=== PATIENT | female | born 1975 | race Caucasian/White ===

== ENCOUNTER 2016-12-09 13:50 | Emergency (ER) | payer MEDICAID ==
[2016-12-09] MEDS ORDERED: OXYCODONE-ACETAMINOPHEN 5-325 MG TABLET PO ONE (15:01)
--- NOTE | 2016-12-09 15:04 | ER Document Report ---
ED Medical Screen (RME) - General Chief Complaint: Abdominal Pain Stated Complaint: SEVER ABDOMINAL PAIN Time Seen by Provider: 12/09/16 14:58 Notes: 41-year-old female patient complaining of some lower abdominal pain which she thought might be her diverticulitis flaring up. She also has hemorrhoids hanging out this started about 2 weeks ago which she tries to reduce, but cannot due to size and pain associated with them now. She is unable to sit down. She states she has rods in her back and the nerves from that and her diverticular disease and the hemorrhoids all come together and she has difficulty telling what is what. She did look in a mirror and saw a cluster of hemorrhoids similar to a Internet picture she had looked at. I have greeted and performed a rapid initial assessment of this patient. A comprehensive ED assessment and evaluation of the patient, analysis of test results and completion of the medical decision making process will be conducted by additional ED providers. TRAVEL OUTSIDE OF THE [place] IN LAST 30 DAYS: No - Related Data Allergies/Adverse Reactions: No Known Allergies Allergy (Unverified 12/09/16 14:01) Past Medical History Renal/ Medical History: Denies: Hx Peritoneal Dialysis Past Surgical History: Reports: Hx Oral Surgery - left jaw, Hx Orthopedic Surgery - back - Immunizations Hx Diphtheria, Pertussis, Tetanus Vaccination: Yes Physical Exam - Vital signs Vitals: Temp Pulse Resp BP Pulse Ox 98.5 F 140 H 20 122/99 H 98 12/09/16 14:00 12/09/16 14:00 12/09/16 14:00 12/09/16 14:00 12/09/16 14:00 Course - Vital Signs Vital signs: Temp Pulse Resp BP Pulse Ox 98.5 F 140 H 20 122/99 H 98 12/09/16 14:00 12/09/16 14:00 12/09/16 14:00 12/09/16 14:00 12/09/16 14:00
[2016-12-09 15:27] LABS: ABSOLUTE BASOPHILS # (AUTO) 0.1 10^3/uL (0.0-0.2); ABSOLUTE EOSINOPHILS # (AUTO) 0.2 10^3/uL (0.0-0.6); ABSOLUTE LYMPHOCYTES (AUTO) 2.5 10^3/uL (0.5-4.7); ABSOLUTE MONOCYTES (AUTO) 0.8 10^3/uL (0.1-1.4); ABSOLUTE NEUT (AUTO) 6.3 10^3/uL (1.7-8.2); BASOPHILS % (AUTO) 0.9 % (0-2); EOSINOPHILS % (AUTO) 2.2 % (0-6); HEMATOCRIT 41.5 % (36.0-47.0); HEMOGLOBIN 14.3 g/dL (12.0-15.5); HGB HCT DIFFERENCE 1.4; LYMPHOCYTES % (AUTO) 25.3 % (13-45); MEAN CORPUSCULAR HEMOGLOBIN 33.2 pg (27.0-33.4); MEAN CORPUSCULAR HGB CONC 34.6 g/dL (32.0-36.0); MEAN CORPUSCULAR VOLUME 96 fl (80-97); MONOCYTES % (AUTO) 7.9 % (3-13); RED BLOOD COUNT 4.31 10^6/uL (3.72-5.28); RED CELL DISTRIBUTION WIDTH 14.4 % (11.5-14.0); SEGMENTED NEUTROPHILS % (AUTO) 63.7 % (42-78); WHITE BLOOD COUNT 9.9 10^3/uL (4.0-10.5)
[2016-12-09 15:31] LABS: APPEARANCE,URINE CLEAR; BILIRUBIN,URINE NEGATIVE (NEGATIVE); GLUCOSE, URINE NEGATIVE (NEGATIVE); KETONES,URINE NEGATIVE (NEGATIVE); LEUKOCYTE ESTERASE,URINE SMALL (NEGATIVE); NITRITE,URINE NEGATIVE (NEGATIVE); PROTEIN,URINE NEGATIVE (NEGATIVE); URINE SPECIFIC GRAVITY 1.001; UROBILINOGEN,URINE NEGATIVE mg/dL (<2.0)
[2016-12-09 15:45] LABS: ALANINE AMINOTRANSFERASE 22 U/L (9-52); ALBUMIN 4.4 g/dL (3.5-5.0); ALKALINE PHOSPHATASE 103 U/L (38-126); ANION GAP 10 (5-19); ASPARTATE AMINO TRANSFERASE 20 U/L (14-36); BILIRUBIN,DIRECT 0.4 mg/dL (0.0-0.4); BILIRUBIN,TOTAL 0.5 mg/dL (0.2-1.3); BLOOD UREA NITROGEN 4 mg/dL (7-20); CALCIUM 10.7 mg/dL (8.4-10.2); CARBON DIOXIDE 26 mmol/L (22-30); CHLORIDE 102 mmol/L (98-107); CREATININE RESULT 0.68 mg/dL (0.52-1.25); GLUCOSE 91 mg/dL (75-110); POTASSIUM 5.2 mmol/L (3.6-5.0); SODIUM 138.4 mmol/L (137-145); TOTAL PROTEIN 7.5 g/dL (6.3-8.2)
--- NOTE | 2016-12-09 16:02 | ER Document Report ---
ED GI/ - General Chief Complaint: Abdominal Pain Stated Complaint: SEVER ABDOMINAL PAIN Time Seen by Provider: 12/09/16 14:58 Mode of Arrival: Ambulatory Information source: Patient Notes: Patient presents complaining of lower pelvic pain and low back pain for the past 2 weeks. Patient also reports a flareup of her hemorrhoids as well. Patient states she has noticed blood with her bowel movements. Patient denies any fever, nausea, vomiting, or diarrhea. Patient denies any vaginal bleeding or discharge. Patient denies any urinary symptoms. TRAVEL OUTSIDE OF THE [place] IN LAST 30 DAYS: No - HPI Patient complains to provider of: Pelvic pain. No: Vaginal discharge, Vaginal pain, Vomiting Onset: Other - 2 weeks Timing/Duration: Waxing and waning Quality of pain: Sharp Pain Level: 5 Location: Pelvis Vaginal bleeding (Compared to normal period): None Sexual history: Active Associated symptoms: Blood in stool. denies: Constipation, Diarrhea, Dysuria, Fever, Nausea, Urinary hesitancy, Urinary frequency, Urinary retention, Urinary urgency, Vaginal discharge, Vomiting Exacerbated by: Other - bowel movement Relieved by: Denies Similar symptoms previously: No Recently seen / treated by doctor: No - Related Data Allergies/Adverse Reactions: No Known Allergies Allergy (Unverified 12/09/16 14:01) Past Medical History - General Information source: Patient - Social History Smoking Status: Current Every Day Smoker Frequency of alcohol use: None Drug Abuse: Marijuana Occupation: none Lives with: Spouse/Significant other Family History: Reviewed & Not Pertinent - Medical History Medical History: Other - marfan Renal/ Medical History: Denies: Hx Peritoneal Dialysis GI Medical History: Reports: Hx Diverticulitis Musculoskeltal Medical History: Reports Hx Arthritis, Reports Other Other: scoliosis Past Surgical History: Reports: Hx Oral Surgery - left jaw, Hx Orthopedic Surgery - back - Immunizations Hx Diphtheria, Pertussis, Tetanus Vaccination: Yes Review of Systems - Review of Systems Constitutional: No symptoms reported. denies: Fever, Recent illness EENT: No symptoms reported Cardiovascular: No symptoms reported. denies: Chest pain Respiratory: No symptoms reported. denies: Cough, Short of breath Gastrointestinal: Abdominal pain, Blood streaked bowels, Other - hemorrhoids. denies: Diarrhea, Nausea, Vomiting Genitourinary: No symptoms reported. denies: Dysuria, Flank pain Female Genitourinary: No symptoms reported. denies: , Vaginal discharge , Vaginal bleeding Musculoskeletal: Back pain Skin: No symptoms reported Hematologic/Lymphatic: No symptoms reported Neurological/Psychological: No symptoms reported Physical Exam - Vital signs Vitals: Temp Pulse Resp BP Pulse Ox 98.5 F 140 H 20 122/99 H 98 12/09/16 14:00 12/09/16 14:00 12/09/16 14:00 12/09/16 14:00 12/09/16 14:00 Interpretation: Other - apical HR 80. No: Tachycardic - General General appearance: Appears well, Alert In distress: None - HEENT Head: Normocephalic, Atraumatic Eyes: Normal Nasal: Normal Neck: Normal, Supple. No: Lymphadenopathy - Respiratory Respiratory status: No respiratory distress Chest status: Nontender Breath sounds: Normal. No: Rales, Rhonchi, Stridor, Wheezing Chest palpation: Normal - Cardiovascular Rhythm: Regular. No: Tachycardia Heart sounds: S1 appreciated, S2 appreciated Murmur: No - Abdominal Inspection: Normal Distension: No distension Bowel sounds: Normal Tenderness: Tender - lower pelvic tenderness. No: McBurney's point, Guarding Organomegaly: No organomegaly - Rectal Tenderness: Yes Stool: See lab result Hemorrhoids: Internal, External - Genitourinary External exam: Normal Speculum exam: Cervix closed Vaginal bleeding: None Bimanuel exam: Cervical motion tender, Adnexal tenderness - bilat, R side more tender than left - Back Back: Normal, Scars. No: Vertebra tenderness - Extremities General upper extremity: Normal inspection, Normal ROM General lower extremity: Normal inspection, Normal ROM - Neurological Neuro grossly intact: Yes Cognition: Normal Hiral Coma Scale Eye Opening: Spontaneous [place] Coma Scale Verbal: Oriented [place] Coma Scale Motor: Obeys Commands Hiral Coma Scale Total: 15 - Psychological Associated symptoms: Normal affect, Normal mood - Skin Skin Temperature: Warm Skin Moisture: Dry Skin Color: Normal Course - Re-evaluation Re-evalutation: 12/09/16 18:27 Patient does acknowledge that she has an IUD that has been in place for about 8 years. No strings were noted on pelvic examination. Patient's abdomen is soft and nontender. Patient does have lower pelvic pain, no concern for appendicitis. Consulted with Dr. Lincoln regarding patient presentation and diagnostic evaluation. Agrees with discharge plan of care, agrees with plan to treat for possible PID given her exam findings on pelvic examination. Also recommend outpatient follow-up with gastroenterology for further evaluation of reported rectal bleeding. Discussed this plan of care with patient, patient verbalized understanding and agrees with plan of care. Patient presents with abdominal pain without signs of peritonitis or other life-threatening or serious etiology. Patient appears stable for discharge and has been instructed to return immediately if the symptoms worsen in any way, or in 8-12 hours if not improved for reevaluation. The patient has been instructed to return if the symptoms worsen or change in any way. 12/09/16 18:29 Late entry: Patient with erroneous initial heart rate measured at 140, patient' s heart rate on arrival to room was 80 - Vital Signs Vital signs: Temp Pulse Resp BP Pulse Ox 98.1 F 85 18 103/61 99 12/09/16 16:30 12/09/16 16:30 12/09/16 16:30 12/09/16 16:30 12/09/16 16:30 - Laboratory Result Diagrams: 12/09/16 15:18 12/09/16 15:18 Laboratory results interpreted by me: 12/09/16 12/09/16 12/09/16 15:18 15:18 15:18 RDW 14.4 H Plt Count 500 H Potassium 5.2 H BUN 4 L Calcium 10.7 H Urine Blood SMALL H Ur Leukocyte Esterase SMALL H 12/09/16 18:29 Labs- Entire Visit 12/09/16 12/09/16 12/09/16 15:18 15:18 15:18 WBC 9.9 RBC 4.31 Hgb 14.3 Hct 41.5 MCV 96 MCH 33.2 MCHC 34.6 RDW 14.4 H Plt Count 500 H Seg Neutrophils % 63.7 Lymphocytes % 25.3 Monocytes % 7.9 Eosinophils % 2.2 Basophils % 0.9 Absolute Neutrophils 6.3 Absolute Lymphocytes 2.5 Absolute Monocytes 0.8 Absolute Eosinophils 0.2 Absolute Basophils 0.1 Sodium 138.4 Potassium 5.2 H Chloride 102 Carbon Dioxide 26 Anion Gap 10 BUN 4 L Creatinine 0.68 Est GFR ( Amer) > 60 Est GFR (Non-Af Amer) > 60 Glucose 91 Calcium 10.7 H Total Bilirubin 0.5 Direct Bilirubin 0.4 Indirect Bilirubin Not Reportable Neonat Total Bilirubin Not Reportable AST 20 ALT 22 Alkaline Phosphatase 103 Total Protein 7.5 Albumin 4.4 Serum HCG, Qual NEGATIVE Urine Color Urine Appearance Urine pH Ur Specific [place] Urine Protein Urine Glucose (UA) Urine Ketones Urine Blood Urine Nitrite Urine Bilirubin Urine Urobilinogen Ur Leukocyte Esterase Urine WBC (Auto) Urine RBC (Auto) Urine Ascorbic Acid Stool Occult Blood Trichomonas (Wet Prep) Vaginal WBC Vaginal RBC Vaginal Yeast 12/09/16 12/09/16 12/09/16 15:18 15:57 16:43 WBC RBC Hgb Hct MCV MCH MCHC RDW Plt Count Seg Neutrophils % Lymphocytes % Monocytes % Eosinophils % Basophils % Absolute Neutrophils Absolute Lymphocytes Absolute Monocytes Absolute Eosinophils Absolute Basophils Sodium Potassium Chloride Carbon Dioxide Anion Gap BUN Creatinine Est GFR ( Amer) Est GFR (Non-Af Amer) Glucose Calcium Total Bilirubin Direct Bilirubin Indirect Bilirubin Neonat Total Bilirubin AST ALT Alkaline Phosphatase Total Protein Albumin Serum HCG, Qual Urine Color STRAW Urine Appearance CLEAR Urine pH 7.0 Ur Specific [place] 1.001 Urine Protein NEGATIVE Urine Glucose (UA) NEGATIVE Urine Ketones NEGATIVE Urine Blood SMALL H Urine Nitrite NEGATIVE Urine Bilirubin NEGATIVE Urine Urobilinogen NEGATIVE Ur Leukocyte Esterase SMALL H Urine WBC (Auto) 0 Urine RBC (Auto) 0 Urine Ascorbic Acid NEGATIVE Stool Occult Blood POSITIVE Trichomonas (Wet Prep) NO TRICHOMONAS SEEN Vaginal WBC RARE WBCS SEEN Vaginal RBC NO RBCS SEEN Vaginal Yeast NO YEAST SEEN - Diagnostic Test Radiology reviewed: Reports reviewed Discharge - Discharge Clinical Impression: PID (acute pelvic inflammatory disease), Blood in stool, Hx of hemorrhoids, Pelvic pain Condition: Stable Disposition: HOME, SELF-CARE Instructions: Doxycycline ([facility]), Hemorrhoids ([facility]), Pelvic Inflammatory Disease ([facility]), Pelvic Pain ([facility]), Rectal Bleeding, Unclear Cause ([facility]), Rocephin ([facility]) Additional Instructions: Return immediately for any new or worsening symptoms Followup with your primary care provider, call tomorrow to make a followup appointment Follow-up with investment manager for further evaluation of rectal bleeding and management of your hemorrhoids Take a stool softener [id number] to help make bowel movements easy to pass Prescriptions: Doxycycline Hyclate 100 mg PO BID #28 capsule Hydrocortisone Acetate [Anusol Hc 25 Mg Supp.Rect] 25 mg ND BID PRN #[id number] supp.rect PRN Reason: Referrals: [facility] [Provider Group] - Follow up as needed ROSE VILLARREAL MD [ACTIVE STAFF] - Follow up as needed DARIANA PULLIAM MD [ACTIVE STAFF] - Follow up as needed
--- NOTE | 2016-12-09 18:00 | RADIOLOGY REPORT (SQ) ---
EXAM DESCRIPTION: U/S NON OB PEL TV W/DOPPLER COMPLETED DATE/TIME: 12/09/2016 5:39 pm REASON FOR STUDY: adnexal pain, R>L COMPARISON: None. TECHNIQUE: Dynamic and static grayscale images acquired of the pelvis via transvaginal approach and recorded on PACS. Additional selected color Doppler and spectral images recorded. LIMITATIONS: None. FINDINGS: UTERUS: Contour normal. No mass. ENDOMETRIAL STRIPE: No focal or generalized thickening. No masses. An IUD is present. CERVIX: No nabothian cysts. RIGHT OVARY: There is a 2.3 x 1.8 x 1.6 cm dominant follicle. RIGHT OVARY DOPPLER: Normal arterial vascular flow without evidence for torsion. LEFT OVARY: No abnormal masses. LEFT OVARY DOPPLER: Normal arterial vascular flow without evidence for torsion. FREE FLUID: None noted. OTHER: No other significant finding. MEASUREMENTS: UTERUS: 8.9 x 5.4 x 3.7 cm ENDOMETRIAL STRIPE: 4 mm. RIGHT OVARY: 3.4 x 2.7 x 1.9 cm LEFT OVARY: 2.5 x 1.9 x 1.2 cm IMPRESSION: Dominant follicle in the right ovary. No follow-up imaging recommended. TECHNICAL DOCUMENTATION: JOB ID: [id number] [email or web address]- All Rights Reserved
[2016-12-09] MEDS ORDERED: LIDOCAINE 1% INJ-PF (10 MG/ML) 30 ML SDV INJ ONE (18:21)
[2016-12-09] MEDS ORDERED: CEFTRIAXONE INJ 250 MG VIAL IM ONE (18:21)
[2016-12-09] MEDS ORDERED: DOXYCYCLINE HYCLATE 100 MG TABLET PO ONE (18:22)
[2016-12-09 18:27] LABS: CHLAM PCR NOT DETECTED (NOT DETECT)
[2016-12-09 18:59] VITALS: BP 113/82
== END 2016-12-09 18:59 | disposition home or self-care (01) ==
LOC: ER 13:50
DX: N73.9 Female pelvic inflammatory disease, unspecified (principal); R19.5 Other fecal abnormalities; R10.2 Pelvic and perineal pain; R10.9 Unspecified abdominal pain; M54.5 Low back pain; F17.200 Nicotine dependence, unspecified, uncomplicated
CPT/HCPCS: 99284; 96372; 36415; 87086; 87210; 84703; 85025; 82272; 87088; 80053; 81001; 87186; 87491; 87591; 76830; 93976; J3490 ×2; J0696

== ENCOUNTER 2018-04-04 18:25 | Emergency (ER) | payer SELFPAY ==
[2018-04-04] MEDS ORDERED: NORMAL SALINE 1000 ML 1,000 ML IV ONE ×2 (18:35→21:08)
--- NOTE | 2018-04-04 18:36 | ER Document Report ---
ED General - General Stated Complaint: POSSIBLE OVERDOSE Time Seen by Provider: 04/04/18 18:32 Notes: 42-year-old female patient brought in by EMS for altered mental status, hypothermia. Patient reportedly doing narcotics. Snorted Percocet for her back pain. Apparently became unresponsive. Her friends put her in a bathtub with ice. Was having difficulty breathing then. They decided to call the ambulance. [place] got there and found a extremely cold shivering individual with a rectal temperature of 89 F. Multiple doses of Narcan were given. Patient became more responsive. Patient denied any complaints at this time other than her chronic back pain. Patient seen immediately on arrival. Placed on Lulú hugger. Lyles catheter ordered with bladder temp probe. Core temperature after 1 L of saline and warming blanket was 97 C TRAVEL OUTSIDE OF THE [place] IN LAST 30 DAYS: No - HPI Onset: Just prior to arrival Quality of pain: Achy Severity: Severe Pain Level: 1 Associated symptoms: Shortness of breath, Slow to respond - Related Data Allergies/Adverse Reactions: No Known Allergies Allergy (Unverified 12/09/16 14:01) Past Medical History - General Information source: Patient, Emergency Med Personnel - Social History Smoking Status: Current Every Day Smoker Frequency of alcohol use: None Drug Abuse: None Lives with: Alone Family History: Reviewed & Not Pertinent - Medical History Medical History: Negative Renal/ Medical History: Denies: Hx Peritoneal Dialysis GI Medical History: Reports: Hx Diverticulitis Musculoskeletal Medical History: Reports Hx Arthritis Past Surgical History: Reports: Hx Oral Surgery - left jaw, Hx Orthopedic Surgery - back - Immunizations Hx Diphtheria, Pertussis, Tetanus Vaccination: Yes Review of Systems - Review of Systems Notes: Constitutional: denies: Chills, Diaphoresis, Fever, Malaise, Weakness EENT: denies: Eye discharge, Blurred vision, Tearing, Double vision, Nose congestion, Nose discharge, Throat swelling, Mouth pain Cardiovascular: denies: Palpitations, Heart racing, Orthopnea, Dyspnea, Chest pain Respiratory: denies: Cough, Hurts to breathe, Wheezing, Shortness of breath Gastrointestinal: denies: Abdominal pain, Diarrhea, Nausea, Vomiting, Black stools, bright red blood in stool Genitourinary: denies: Burning, Dysuria, Discharge, Frequency, Flank pain, Hematuria Musculoskeletal: denies: Joint pain, Joint swelling, Muscle pain, Muscle stiffness, back pain Hematologic/Lymphatic: denies: Anemia, Easy bleeding, Easy bruising, Blood clots Neurological/Psychological: denies: Confusion, Dementia, Depression, Loss of consciousness Skin: No lesions, no masses, no skin breakdown, no abscesses Physical Exam - Vital signs Vitals: Resp Pulse Ox 32 H 100 04/04/18 18:34 04/04/18 18:34 Interpretation: Tachycardic, Other - General General appearance: Appears well, Alert - HEENT Head: Normocephalic, Atraumatic Eyes: Normal Pupils: PERRL - Respiratory Respiratory status: No respiratory distress Chest status: Nontender Breath sounds: Normal Chest palpation: Normal - Cardiovascular Rhythm: Tachycardia Heart sounds: Normal auscultation Murmur: No - Abdominal Inspection: Normal Distension: No distension Bowel sounds: Normal Tenderness: Nontender Organomegaly: No organomegaly - Back Back: Normal, Nontender - Extremities General upper extremity: Normal inspection, Nontender, Normal color, Normal ROM , Normal temperature General lower extremity: Normal inspection, Nontender, Normal color, Normal ROM , Normal temperature. No: Mimi's sign - Neurological Neuro grossly intact: Yes Cognition: Normal Orientation: AAOx4 [place] Coma Scale Eye Opening: Spontaneous [place] Coma Scale Verbal: Oriented Hiral Coma Scale Motor: Obeys Commands [place] Coma Scale Total: 15 Speech: Normal Motor strength normal: LUE, RUE, LLE, RLE Sensory: Normal - Psychological Associated symptoms: Normal affect, Normal mood - Skin Skin Temperature: Warm Skin Moisture: Dry Skin Color: Normal Course - Re-evaluation Re-evalutation: 04/04/18 19:33 Patient with uncontrollable shivering on arrival. Blood pressure was low. Heart rate was in the 120s-130s on arrival. Warm saline bolus ordered. Warming blanket ordered. Lyles catheter ordered. Placed on cardiac monitoring. Due to the multiple Narcan chest x-ray was ordered to look for any signs of pulmonary edema. I have a low index of suspicion to re-dose the Narcan in the event her respiratory rate or mental status begins to decrease again. 04/04/18 23:11 Laboratory 04/04/18 04/04/18 04/04/18 19:08 19:08 19:08 WBC 17.9 H RBC 3.78 Hgb 12.2 Hct 35.8 L MCV 95 MCH 32.4 MCHC 34.2 RDW 13.7 Plt Count 360 Seg Neutrophils % 89.2 H Lymphocytes % 7.2 L Monocytes % 3.3 Eosinophils % 0.1 Basophils % 0.2 Absolute Neutrophils 16.0 H Absolute Lymphocytes 1.3 Absolute Monocytes 0.6 Absolute Eosinophils 0.0 Absolute Basophils 0.0 Sodium 144.8 Potassium 4.6 Chloride 106 Carbon Dioxide 24 Anion Gap 15 BUN 18 Creatinine 0.65 Est GFR ( Amer) > 60 Est GFR (Non-Af Amer) > 60 Glucose 100 Lactic Acid Calcium 9.3 Total Bilirubin 0.4 Direct Bilirubin 0.4 Neonat Total Bilirubin Not Reportable Neonat Direct Bilirubin Not Reportable Neonat Indirect Bili Not Reportable AST 30 ALT 7 L Alkaline Phosphatase 68 Creatine Kinase 83 CK-MB (CK-2) 1.19 Troponin I < 0.012 Total Protein 8.0 Albumin 4.8 Urine Color Urine Appearance Urine pH Ur Specific [place] Urine Protein Urine Glucose (UA) Urine Ketones Urine Blood Urine Nitrite Urine Bilirubin Urine Urobilinogen Ur Leukocyte Esterase Urine WBC (Auto) Urine RBC (Auto) U Hyaline Cast (Auto) Squamous Epi Cells Auto Urine Mucus (Auto) Urine Ascorbic Acid Urine HCG, Qual Salicylates Urine Opiates Screen Urine Methadone Screen Acetaminophen Ur Barbiturates Screen Ur Phencyclidine Scrn Ur Amphetamines Screen U Benzodiazepines Scrn Urine Cocaine Screen U Marijuana (THC) Screen Serum Alcohol 04/04/18 04/04/18 04/04/18 19:08 19:20 19:20 WBC RBC Hgb Hct MCV MCH MCHC RDW Plt Count Seg Neutrophils % Lymphocytes % Monocytes % Eosinophils % Basophils % Absolute Neutrophils Absolute Lymphocytes Absolute Monocytes Absolute Eosinophils Absolute Basophils Sodium Potassium Chloride Carbon Dioxide Anion Gap BUN Creatinine Est GFR ( Amer) Est GFR (Non-Af Amer) Glucose Lactic Acid Calcium Total Bilirubin Direct Bilirubin Neonat Total Bilirubin Neonat Direct Bilirubin Neonat Indirect Bili AST ALT Alkaline Phosphatase Creatine Kinase CK-MB (CK-2) Troponin I Total Protein Albumin Urine Color YELLOW Urine Appearance SLIGHTLY-CLOUDY Urine pH 5.0 Ur Specific [place] 1.018 Urine Protein 100 H Urine Glucose (UA) 50 H Urine Ketones TRACE H Urine Blood SMALL H Urine Nitrite NEGATIVE Urine Bilirubin NEGATIVE Urine Urobilinogen NEGATIVE Ur Leukocyte Esterase NEGATIVE Urine WBC (Auto) 5 Urine RBC (Auto) 3 U Hyaline Cast (Auto) 40 Squamous Epi Cells Auto 1 Urine Mucus (Auto) FEW Urine Ascorbic Acid NEGATIVE Urine HCG, Qual NEGATIVE Salicylates < 1.0 L Urine Opiates Screen NEGATIVE Urine Methadone Screen NEGATIVE Acetaminophen < 10 L Ur Barbiturates Screen NEGATIVE Ur Phencyclidine Scrn NEGATIVE Ur Amphetamines Screen NEGATIVE U Benzodiazepines Scrn NEGATIVE Urine Cocaine Screen NEGATIVE U Marijuana (THC) Screen UNCONFIRMED POSITIVE Serum Alcohol < 10 04/04/18 04/04/18 22:13 22:13 WBC 12.4 H RBC 3.18 L Hgb 10.2 L Hct 29.7 L MCV 94 MCH 32.3 MCHC 34.5 RDW 13.6 Plt Count 263 Seg Neutrophils % Lymphocytes % Monocytes % Eosinophils % Basophils % Absolute Neutrophils Absolute Lymphocytes Absolute Monocytes Absolute Eosinophils Absolute Basophils Sodium Potassium Chloride Carbon Dioxide Anion Gap BUN Creatinine Est GFR ( Amer) Est GFR (Non-Af Amer) Glucose Lactic Acid 0.5 L Calcium Total Bilirubin Direct Bilirubin Neonat Total Bilirubin Neonat Direct Bilirubin Neonat Indirect Bili AST ALT Alkaline Phosphatase Creatine Kinase CK-MB (CK-2) Troponin I Total Protein Albumin Urine Color Urine Appearance Urine pH Ur Specific [place] Urine Protein Urine Glucose (UA) Urine Ketones Urine Blood Urine Nitrite Urine Bilirubin Urine Urobilinogen Ur Leukocyte Esterase Urine WBC (Auto) Urine RBC (Auto) U Hyaline Cast (Auto) Squamous Epi Cells Auto Urine Mucus (Auto) Urine Ascorbic Acid Urine HCG, Qual Salicylates Urine Opiates Screen Urine Methadone Screen Acetaminophen Ur Barbiturates Screen Ur Phencyclidine Scrn Ur Amphetamines Screen U Benzodiazepines Scrn Urine Cocaine Screen U Marijuana (THC) Screen Serum Alcohol Chest X-Ray 04/04/18 18:34 IMPRESSION: NO ACUTE RADIOGRAPHIC FINDING IN THE CHEST. Patient feeling better at this time. Consult with poison control. Based on possible overdose on narcotics even though the drug screen is negative they recommend 6-hour observation time. Patient is alert and with it. Talking in full sentences in no acute distress. Will discharge shortly. - Vital Signs Vital signs: Temp Pulse Resp BP Pulse Ox 99.3 F 14 119/85 93 04/04/18 23:02 04/04/18 23:02 04/04/18 23:02 04/04/18 23:02 - Laboratory Result Diagrams: 04/04/18 22:13 04/04/18 19:08 Laboratory results interpreted by me: 04/04/18 04/04/1804/04/18 19:08 19:08 19:08 WBC 17.9 H RBC Hgb Hct 35.8 L Seg Neutrophils % 89.2 H Lymphocytes % 7.2 L Absolute Neutrophils 16.0 H Lactic Acid ALT 7 L Urine Protein Urine Glucose (UA) Urine Ketones Urine Blood Salicylates < 1.0 L Acetaminophen < 10 L 04/04/18 04/04/18 04/04/18 19:20 22:13 22:13 WBC 12.4 H RBC 3.18 L Hgb 10.2 L Hct 29.7 L Seg Neutrophils % Lymphocytes % Absolute Neutrophils Lactic Acid 0.5 L ALT Urine Protein 100 H Urine Glucose (UA) 50 H Urine Ketones TRACE H Urine Blood SMALL H Salicylates Acetaminophen Critical Care Note - Critical Care Note Total time excluding time spent on procedures (mins): 45 Comments: Hypothermia, tachycardia, hypotension, drug overdose Discharge - Discharge Clinical Impression: Opiate or related narcotic overdose Qualifiers: Encounter type: initial encounter Injury intent: undetermined intent Qualified Code(s): T40.604A - Poisoning by unspecified narcotics, undetermined, initial encounter Hypothermia Qualifiers: Encounter type: initial encounter Qualified Code(s): T68.XXXA - Hypothermia, initial encounter Condition: Good Disposition: HOME, SELF-CARE Instructions: Instructions for Home Care Following a Drug Overdose ([facility]) Referrals: [facility] [Provider Group] - Follow up as needed
--- NOTE | 2018-04-04 19:14 | RADIOLOGY REPORT (SQ) ---
EXAM DESCRIPTION: CHEST SINGLE VIEW COMPLETED DATE/TIME: 04/04/2018 7:06 pm REASON FOR STUDY: sob COMPARISON: None. EXAM PARAMETERS: NUMBER OF VIEWS: One view. TECHNIQUE: Single frontal radiographic view of the chest acquired. RADIATION DOSE: NA LIMITATIONS: None. FINDINGS: LUNGS AND PLEURA: No opacities, masses or pneumothorax. No pleural effusion. MEDIASTINUM AND HILAR STRUCTURES: No masses. Contour normal. HEART AND VASCULAR STRUCTURES: Heart normal in size. Normal vasculature. BONES: No acute findings. HARDWARE: The spinal hardware and surgical clips. OTHER: No other significant finding. IMPRESSION: NO ACUTE RADIOGRAPHIC FINDING IN THE CHEST. TECHNICAL DOCUMENTATION: JOB ID: [id number] [employer]- All Rights Reserved Reading location - IP/workstation name: [email or web address]
[2018-04-04 19:24] LABS: BASOPHILS % (AUTO) 0.2 % (0-2); EOSINOPHILS % (AUTO) 0.1 % (0-6); HEMATOCRIT 35.8 % (36.0-47.0); HEMOGLOBIN 12.2 g/dL (12.0-15.5); LYMPHOCYTES % (AUTO) 7.2 % (13-45); MEAN CORPUSCULAR HEMOGLOBIN 32.4 pg (27.0-33.4); MEAN CORPUSCULAR HGB CONC 34.2 g/dL (32.0-36.0); MEAN CORPUSCULAR VOLUME 95 fl (80-97); MONOCYTES % (AUTO) 3.3 % (3-13); PLATELET COUNT 360 10^3/uL (150-450); RED BLOOD COUNT 3.78 10^6/uL (3.72-5.28); RED CELL DISTRIBUTION WIDTH 13.7 % (11.5-14.0); SEGMENTED NEUTROPHILS % (AUTO) 89.2 % (42-78); TOTAL CELLS COUNTED % (AUTO) 100 %; WHITE BLOOD COUNT 17.9 10^3/uL (4.0-10.5)
[2018-04-04 19:25] LABS: ABSOLUTE LYMPHOCYTES (AUTO) 1.3 10^3/uL (0.5-4.7); ABSOLUTE MONOCYTES (AUTO) 0.6 10^3/uL (0.1-1.4)
[2018-04-04 19:44] LABS: APPEARANCE,URINE SLIGHTLY-CLOUDY; BILIRUBIN,URINE NEGATIVE (NEGATIVE); COLOR,URINE YELLOW; GLUCOSE, URINE 50 mg/dL (NEGATIVE); KETONES,URINE TRACE mg/dL (NEGATIVE); LEUKOCYTE ESTERASE,URINE NEGATIVE (NEGATIVE); NITRITE,URINE NEGATIVE (NEGATIVE); PROTEIN,URINE 100 mg/dL (NEGATIVE); URINE SPECIFIC GRAVITY 1.018; UROBILINOGEN,URINE NEGATIVE mg/dL (<2.0)
[2018-04-04 19:47] LABS: ALANINE AMINOTRANSFERASE 7 U/L (9-52); ALBUMIN 4.8 g/dL (3.5-5.0); ALKALINE PHOSPHATASE 68 U/L (38-126); ANION GAP 15 (5-19); ASPARTATE AMINO TRANSFERASE 30 U/L (14-36); BILIRUBIN,DIRECT 0.4 mg/dL (0.0-0.4); BILIRUBIN,TOTAL 0.4 mg/dL (0.2-1.3); BLOOD UREA NITROGEN 18 mg/dL (7-20); CALCIUM 9.3 mg/dL (8.4-10.2); CARBON DIOXIDE 24 mmol/L (22-30); CHLORIDE 106 mmol/L (98-107); CREATINE KINASE 83 U/L (30-135); GLUCOSE 100 mg/dL (75-110); POTASSIUM 4.6 mmol/L (3.6-5.0); SODIUM 144.8 mmol/L (137-145)
[2018-04-04 19:57] LABS: URINE AMPHETAMINES SCREEN NEGATIVE; URINE BARBITURATES SCREEN NEGATIVE; URINE BENZODIAZEPINES SCREEN NEGATIVE; URINE COCAINE SCREEN NEGATIVE; URINE MARIJUANA (THC) SCREEN UNCONFIRMED POSITIVE; URINE METHADONE SCREEN NEGATIVE; URINE PHENCYCLIDINE SCREEN NEGATIVE
[2018-04-04 19:58] LABS: CREATINE KINASE MB 1.19 ng/mL (<4.55)
[2018-04-04 20:04] LABS: TROPONIN I < 0.012 ng/mL
[2018-04-04] MEDS ORDERED: ONDANSETRON HCL INJ/PF 4 MG/2 ML SDV IV ONE (20:11)
--- NOTE | 2018-04-04 20:53 | EKG REPORT ---
SEVERITY:- NORMAL ECG - SINUS RHYTHM : Confirmed by: Kiarra Younger MD 04-Apr-2018 20:53:00
[2018-04-04 21:00] LABS: ACETAMINOPHEN < 10 ug/mL (10-30); ALCOHOL < 10 mg/dL (NONE DETECTED); SALICYLATE < 1.0 mg/dL (2.0-20.0)
[2018-04-04 22:39] LABS: HEMATOCRIT 29.7 % (36.0-47.0); HEMOGLOBIN 10.2 g/dL (12.0-15.5); MEAN CORPUSCULAR HEMOGLOBIN 32.3 pg (27.0-33.4); MEAN CORPUSCULAR HGB CONC 34.5 g/dL (32.0-36.0); MEAN CORPUSCULAR VOLUME 94 fl (80-97); PLATELET COUNT 263 10^3/uL (150-450); RED BLOOD COUNT 3.18 10^6/uL (3.72-5.28); RED CELL DISTRIBUTION WIDTH 13.6 % (11.5-14.0); WHITE BLOOD COUNT 12.4 10^3/uL (4.0-10.5)
[2018-04-04] MEDS ORDERED: KETOROLAC TROMETHAMINE INJ/PF 30 MG/1 ML SDV IV ONE (23:20)
[2018-04-04] MEDS ORDERED: CEFTRIAXONE INJ 1000 MG VIAL IV ONE (23:20)
[2018-04-04 23:44] VITALS: BP 115/71
== END 2018-04-04 23:43 | disposition home or self-care (01) ==
LOC: ER 18:25
DX: T40.2X1A Poisoning by other opioids, accidental (unintentional), initial encounter (principal); Y92.410 Unspecified street and highway as the place of occurrence of the external cause; T68.XXXA Hypothermia, initial encounter; W93.8XXA Exposure to other excessive cold of man-made origin, initial encounter; Y92.002 Bathroom of unspecified non-institutional (private) residence as the place of occurrence of the external cause; I95.9 Hypotension, unspecified; M54.9 Dorsalgia, unspecified; G89.29 Other chronic pain; R06.02 Shortness of breath; F17.200 Nicotine dependence, unspecified, uncomplicated; R00.0 Tachycardia, unspecified
CPT/HCPCS: 93005; 36415; 82553; 80307 ×4; 82550; 83605; 85025; 85027; 81025; 80053; 81001; 84484; 71045; 93010; J1885; J0696; J2405; J7030